=== PATIENT | male | born 2000 | race African-American/Black ===

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

== ENCOUNTER 2023-04-06 15:05 | Emergency (ER) | payer MEDICARE, OTHER ==
[~2023-04-06 15:05] MED LIST: Iopamidol 300 61% 100 ML VIAL FS ONE
[2023-04-06] MEDS ORDERED: Ondansetron PF 4 MG/2 ML Vial ONE (15:58)
[2023-04-06 16:05] LABS: #Basophils 0.1 10x3/uL (0.0-0.2); #Monocytes 1.1 10x3/uL (0.0-1.1); #Neutrophils 10.2 10x3/uL (1.5-8.4); %Basophils 0.5 % (0.0-2.0); %Neutrophils 81.1 % (40.0-75.0); Hematocrit 49.7 % (38.8-50.0); Hemoglobin 17.8 g/dL (13.5-17.5); Mean Corpuscular HGB CONC 35.8 g/dL (32.0-36.0); Mean Corpuscular Hemoglobin 30.4 pg (27.0-33.0); Mean Platelet Volume 9.5 fl (7.4-10.4); Platelet Count 321 10x3/uL (150-450); RBC Distribution Width 12.5 % (11.5-14.5); Red Blood Cell (RBC) Count 5.85 10x6/uL (4.32-5.72); White Blood Cell (WBC) Count 12.6 10x3/uL (3.5-10.5)
[2023-04-06 16:16] LABS: ALT (SGPT) 58 U/L (8-55); AST (SGOT) 39 U/L (5-34); Albumin 5.3 g/dL (3.5-5.0); Alkaline Phosphatase 114 U/L (50-130); Anion Gap 21 mmol/L (10-20); BUN (Urea Nitrogen) 24 mg/dL (8.9-20.6); Calc. Creatinine Clearance 0 mL/min (70-130); Calcium 10.7 mg/dL (7.8-10.44); Carbon Dioxide 29 mmol/L (22-29); Chloride 96 mmol/L (98-107); Estimated GFR 81; Globulin 4.1 g/dL (2.4-3.5); Glucose 117 mg/dL (70-105); Lipase 11 U/L (8-78); Potassium 4.2 mmol/L (3.5-5.1); Protein, Total 9.4 g/dL (6.0-8.3); Sodium 142 mmol/L (136-145)
[2023-04-06 18:31] LABS: Bilirubin Neg (Negative); Blood, Urine 50 (Negative); Clarity Clear (Clear); Glucose, Urine (Dipstick) Normal (Negative); Ketone, Urine 15 mg/dL (Negative); Leukocyte Negative (Negative); Nitrite Negative (Negative); Protein, Urine (Dipstick) 100 mg/dl (Neg-Trace); Urobilinogen Normal mg/dL (Less than 2)
[2023-04-06 18:49] LABS: Bacteria/HPF Rare-Few HPF (None Seen); CAUTI Indications for Culture Alt mental st,lethar; RBC/HPF 0-3 HPF (0-3); WBC/HPF 0-3 HPF (0-3)
[2023-04-06 18:50] LABS: Urine Culture Reflex No No
== END 2023-04-06 19:29 | disposition home or self-care (01) ==
LOC: CSHERS 15:05
DX: R11.2 Nausea with vomiting, unspecified (principal); D72.829 Elevated white blood cell count, unspecified
CPT/HCPCS: 36415; 74177; 80053; 81001; 83690; 85025; 96361; 96374; J2405; Q9967

== ENCOUNTER 2024-01-29 13:04 | Emergency (ER) | payer SELFPAY ==
[2024-01-29] MEDS ORDERED: Ondansetron ODT 4 MG TAB ONE (13:30)
[2024-01-29 14:23] LABS: #Basophils 0.02 10x3/uL (0.0-0.2); #Eosinphils 0.09 10x3/uL (0.0-0.5); #Neutrophils 4.09 10x3/uL (1.5-8.4); %Basophils 0.4 % (0.0-2.0); %Eosinophils 1.7 % (0.0-6.0); %Lymphocytes 17.1 % (18.0-47.0); %Monocytes 5.5 % (0.0-10.0); %Neutrophils 75.1 % (40.0-75.0); Hematocrit 42.4 % (38.8-50.0); Hemoglobin 15.1 g/dL (13.5-17.5); Mean Corpuscular HGB CONC 35.6 g/dL (32.0-36.0); Mean Corpuscular Hemoglobin 30.9 pg (27.0-33.0); Mean Corpuscular Volume 86.7 fL (81.2-95.1); Mean Platelet Volume 9.7 fL (7.4-10.4); Platelet Count 281 10x3/uL (150-450); RBC Distribution Width 12.4 % (11.5-14.5); Red Blood Cell (RBC) Count 4.89 10x6/uL (4.32-5.72); White Blood Cell (WBC) Count 5.4 10x3/uL (3.5-10.5)
[2024-01-29 14:24] LABS: ALT (SGPT) 47 U/L (8-55); AST (SGOT) 34 U/L (5-34); Albumin 4.8 g/dL (3.5-5.0); Alkaline Phosphatase 100 U/L (40-110); Anion Gap 16 mmol/L (10-20); BUN (Urea Nitrogen) 10 mg/dL (8.9-20.6); Bilirubin, Total 1.4 mg/dL (0.2-1.2); Calc. Creatinine Clearance 0 mL/min (70-130); Calcium 10.2 mg/dL (7.8-10.44); Carbon Dioxide 25 mmol/L (22-29); Chloride 102 mmol/L (98-107); Estimated GFR 104; Globulin 3.3 g/dL (2.4-3.5); Glucose 111 mg/dL (70-105); Lipase 10 U/L (8-78); Potassium 3.7 mmol/L (3.5-5.1); Protein, Total 8.1 g/dL (6.0-8.3); Sodium 139 mmol/L (136-145)
[2024-01-29] MEDS ORDERED: Ketorolac Tromethamine 30 MG (1 mL) VIAL ONE (14:52)
[2024-01-29] MEDS ORDERED: Metoclopramide HCl 10 MG (2 mL) VIAL ONE (14:52)
== END 2024-01-29 16:34 | disposition home or self-care (01) ==
LOC: CSHERS 13:04
DX: K52.9 Noninfective gastroenteritis and colitis, unspecified (principal); Z55.6 Problems related to health literacy
CPT/HCPCS: 80053; 83690; 85025; 96374; 96375; J1885; J2765; Q0162

== ENCOUNTER 2024-06-08 20:22 | Emergency (ER) | payer SELFPAY ==
[2024-06-08] MEDS ORDERED: cefTRIAXone (ROCEPHIN) 500 MG VIAL ONE (20:44)
== END 2024-06-08 21:05 | disposition home or self-care (01) ==
LOC: CSHERS 20:22
DX: N34.1 Nonspecific urethritis (principal)
CPT/HCPCS: 96372; 99283; J0696

== ENCOUNTER 2025-03-30 10:13 | Emergency (ER) | payer SELFPAY ==
[2025-03-30] MEDS ORDERED: Ketorolac Tromethamine 30 MG (1 mL) VIAL ONE (11:11)
[2025-03-30 11:20] LABS: #Basophils Less than 0.03 10x3/uL (0.0-0.2); #Eosinophils Less than 0.03 10x3/uL (0.0-0.5); #Monocytes 0.42 10x3/uL (0.0-1.1); #Neutrophils 4.73 10x3/uL (1.5-8.4); %Basophils 0.3 % (0.0-2.0); %Eosinophils 0.0 % (0.0-6.0); %Lymphocytes 17.3 % (18.0-47.0); %Monocytes 6.7 % (0.0-10.0); %Neutrophils 75.5 % (40.0-75.0); Hematocrit 45.8 % (38.8-50.0); Hemoglobin 16.3 g/dL (13.5-17.5); Mean Corpuscular Hemoglobin 30.9 pg (27.0-33.0); Mean Corpuscular Volume 86.7 fL (81.2-95.1); Platelet Count 280 10x3/uL (150-450); Red Blood Cell (RBC) Count 5.28 10x6/uL (4.32-5.72); White Blood Cell (WBC) Count 6.26 10x3/uL (3.5-10.5)
[2025-03-30 11:37] LABS: ALT (SGPT) 46 U/L (Less than 45); AST (SGOT) 42 U/L (11-34); Albumin 4.9 g/dL (3.1-4.5); Alkaline Phosphatase 96 U/L (40-110); Anion Gap 18 mmol/L (10-20); BUN (Urea Nitrogen) 15 mg/dL (8.9-20.6); Bilirubin, Total 1.5 mg/dL (0.3-1.2); Calc. Creatinine Clearance 0 mL/min (70-130); Calcium 9.9 mg/dL (7.8-10.44); Carbon Dioxide 27 mmol/L (22-29); Chloride 101 mmol/L (98-107); Globulin 3.5 g/dL (2.4-3.5); Glucose 78 mg/dL (70-105); Lipase 9 U/L (8-78); Magnesium 2.2 mg/dL (1.6-2.6); Potassium 4.4 mmol/L (3.5-5.1); Sodium 142 mmol/L (136-145)
== END 2025-03-30 13:15 | disposition home or self-care (01) ==
LOC: CSHERS 10:13
DX: R11.2 Nausea with vomiting, unspecified (principal); R94.5 Abnormal results of liver function studies; Z55.6 Problems related to health literacy
CPT/HCPCS: 36415; 76705; 80053; 83690; 83735; 85025; 93005; 96374; 96375; J1630; J1885